=== PATIENT | female | born 1980 | race Caucasian/White ===

== ENCOUNTER 2018-04-13 19:40 | Emergency (ER) | payer SELFPAY ==
[~2018-04-13] VITALS: Ht 170.2 cm; Wt 64.0 kg
[2018-04-13 20:14] LABS: BASOPHILS % (AUTO) 0 % (0-1); EOSINOPHILS % (AUTO) 0 % (1-7); LYMPHOCYTES # (AUTO) 1.28 x10^3/uL (1-3.4); LYMPHOCYTES % (AUTO) 12 % (22-44); MD NO; MEAN CORPUSCULAR HEMOGLOBIN 32.2 pg (27.0-34.8); MEAN CORPUSCULAR HGB CONC 34.1 g/dL (32.4-35.8); MEAN CORPUSCULAR VOLUME 94.4 fL (80-100); MEAN PLATELET VOLUME 7.3 fL (7.4-10.4); MONOCYTES # (AUTO) 0.12 x10^3/uL (0.2-0.8); MONOCYTES % (AUTO) 1 % (2-9); NEUTROPHILS # (AUTO) 9.09 x10^3/uL (1.8-6.8); NEUTROPHILS % (AUTO) 87 % (42-75); PLATELET COUNT 338 x10^3/uL (130-400); RED BLOOD COUNT 5.32 x10^6/uL (3.82-5.3); RED CELL DISTRIBUTION WIDTH 14.4 % (9.6-15.2)
[2018-04-13 20:23] LABS: ALANINE AMINOTRANSFERASE 22 U/L (12-78); ANION GAP 16 mmol/L (5-15); CALCIUM 7.7 mg/dL (8.5-10.1); CHLORIDE 108 mmol/L (98-107); CREATININE 0.86 mg/dL (0.55-1.02)
[2018-04-13 20:27] LABS: ALKALINE PHOSPHATASE 88 U/L (45-117); BILIRUBIN,TOTAL 0.3 mg/dL (0.2-1.0); TOTAL PROTEIN 8.3 g/dL (6.4-8.2)
[2018-04-13] MEDS ORDERED: PANTOPRAZOLE 40 MG IV IVPush ONE (20:30)
[2018-04-13 21:24] LABS: MICROSCOPIC INDICATED
[2018-04-13] MEDS ORDERED: SODIUM CHLORIDE 0.9% 1,000ML IVBOLUS ONE (21:30)
[2018-04-13 21:42] LABS: CULTURE INDICATED? YES
[2018-04-13 21:45] LABS: SALICYLATE LEVEL 1.8 mg/dL (2.8-20.0)
[2018-04-13 21:52] LABS: ACETAMINOPHEN < 2 mcg/mL (10-30)
[2018-04-13 21:57] LABS: AMPHETAMINE SCREEN, URINE Negative (Negative); BARBITURATE SCREEN, URINE Negative (Negative); BENZODIAZEPINE SCREEN, URINE Negative (Negative); CANNABINOID SCREEN, URINE Negative (Negative); COCAINE SCREEN, URINE Negative (Negative); METHADONE SCREEN, URINE Negative (Negative); OPIATE SCREEN, URINE Negative (Negative)
[2018-04-14] MEDS ORDERED: DIPHENHYDRAMINE 50 MG CAPSULE PO STA (01:57)
[2018-04-14] MEDS ORDERED: DIPHENHYDRAMINE 50 MG CAPSULE ONE (02:10)
[2018-04-14 03:05] VITALS: BP 152/94
[2018-04-14] MEDS ORDERED: PANTOPRAZOLE 40 MG IV ONE (03:23)
== END 2018-04-14 05:42 | disposition home or self-care (01) ==
LOC: ED 21:12
DX: K29.21 Alcoholic gastritis with bleeding (principal); F33.9 Major depressive disorder, recurrent, unspecified; I10 Essential (primary) hypertension; R82.99 Other abnormal findings in urine; Z79.899 Other long term (current) drug therapy
CPT/HCPCS: 36415; 71045; 80053; 80307; 80329; 81001; 83690; 84703; 85025; 87077; 87086; 87186; 93005; 96361; 96374; 99285; C9113; J7030; G0480